=== PATIENT | male | born 2000 | race Caucasian/White ===

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

== ENCOUNTER 2021-03-24 13:43 | Emergency (ER) | payer OTHER ==
[~2021-03-24] VITALS: Ht 167.6 cm; Wt 68.0 kg
[2021-03-24] MEDS ORDERED: IBUPROFEN 600 MG TABLET. PO ONE (14:00)
[2021-03-24] MEDS ORDERED: IOHEXOL 300 MG/ML 75 ML VIAL. IV ONE (15:15)
[2021-03-24] MEDS ORDERED: CONTRAST GIVEN. MC PRN (15:30)
[2021-03-24 15:32] LABS: BASO % 1 % (0-3); EOS # 0.2 x10^3/uL (0.0-0.7); EOS % 3 % (0-3); HEMATOCRIT 45.5 % (39.0-53.0); HEMOGLOBIN 15.3 g/dL (13.0-17.5); LYMPH % 28 % (24-48); MEAN CORPUSCULAR HEMOGLOBIN 30 pg (25-35); MEAN CORPUSCULAR HGB CONC 34 g/dL (31-37); MEAN CORPUSCULAR VOLUME 89 fL (79-100); MONO # 0.5 x10^3/uL (0.0-1.1); MONO % 7 % (0-9); NEUT # 4.5 x10^3uL (1.8-7.7); NEUT % 62 % (31-73); PLATELET COUNT 259 x10^3/uL (140-400); RED CELL DISTRIBUTION WIDTH 13.5 % (11.5-14.5); WHITE BLOOD COUNT 7.2 x10^3/uL (4.0-11.0)
[2021-03-24 15:39] LABS: CREATININE 1.1 mg/dL (0.7-1.3); GFR 86.2
[2021-03-24 15:44] LABS: ALBUMIN 4.3 g/dL (3.4-5.0); ALBUMIN/GLOBULIN RATIO 1.3 (1.0-1.7); TOTAL BILIRUBIN 1.3 mg/dL (0.2-1.0); TOTAL PROTEIN 7.7 g/dL (6.4-8.2)
[2021-03-24 15:54] LABS: MONONUCLEOSIS PATIENT NEGATIVE (NEGATIVE)
--- NOTE | 2021-03-24 15:54 | PHYS DOC ---
Past History Past Medical History: Anxiety, Depression (EILEEN HENRY APRN) Past Surgical History: Appendectomy (EILEEN HENRY APRN) Smoking: Non-smoker Alcohol Use: None Drug Use: Marijuana (EILEEN HENRY APRN) General Adult EDM: Chief Complaint: SORE THROAT HPI: HPI: Patient is a 20-year-old male presents with sore throat. Patient states that he gets strep throat twice a year. Patient states that he has pain when turning his neck to the left and was swallowing. Patient is able to maintain his own secretions. Patient also reports a cough. Patient denies fever. Patient's been using Motrin and salt water gargles at home with no relief. Denies medical history (EILEEN HENRY APRN) Review of Systems: Review of Systems: Constitutional: Denies fever or chills Eyes: Denies change in visual acuity HENT: Reports sore throat. Pain is worse on the right. Respiratory: Reports cough or shortness of breath Cardiovascular: Denies chest pain or edema GI: Denies abdominal pain, nausea, vomiting, bloody stools or diarrhea : Denies dysuria Musculoskeletal: Denies back pain or joint pain Integument: Denies rash Neurologic: Denies headache, focal weakness or sensory changes Endocrine: Denies polyuria or polydipsia Lymphatic: Denies swollen glands Psychiatric: Denies depression or anxiety (EILEEN HENRY APRN) Current Medications: Current Meds: Current Medications Medications (Trade) Dose Ordered Sig/Sonya Start Time Stop Time Status Last Admin Dose Admin Ibuprofen (Motrin) 600 mg 1X ONCE 03/24/21 14:00 03/24/21 14:01 DC 03/24/21 14:27 600 MG Info (Do NOT chart on this entry -- for MONITORING) 1 each PRN DAILY PRN 03/24/21 15:30 03/26/21 15:29 Iohexol (Omnipaque 300 Mg/ml) 75 ml 1X ONCE 03/24/21 15:15 03/24/21 15:21 DC 03/24/21 15:23 75 ML (EILEEN HENRY APRN) Allergies: Allergies: Allergies Coded Allergies Type Severity Reaction Last Updated Verified amoxicillin Allergy Severe hives 03/24/21 Yes (EILEEN HENRY APRN) Physical Exam: PE: Constitutional: Well developed, well nourished, no acute distress, non-toxic appearance. [] HENT: Normocephalic, atraumatic, bilateral external ears normal, oropharynx jatin st, no oral exudates, uvula is deviated to the left, tonsils red and inflamed Eyes: PERRLA, EOMI, conjunctiva normal, no discharge. [] Neck: Normal range of motion, no tenderness, supple, no stridor. [] Cardiovascular:Heart rate regular rhythm, no murmur [] Lungs & Thorax: Bilateral breath sounds clear to auscultation [] Abdomen: Bowel sounds normal, soft, no tenderness, no masses, no pulsatile masses. [] Skin: Warm, dry, no erythema, no rash. [] Back: No tenderness, no CVA tenderness. [] Extremities: No tenderness, no cyanosis, no clubbing, ROM intact, no edema. [] Neurologic: Alert and oriented X 3, normal motor function, normal sensory function, no focal deficits noted. [] Psychologic: Affect normal, judgement normal, mood normal. [] (EILEEN HENRY APRN) Current Patient Data: Labs: Laboratory Tests Test 03/24/21 15:09 White Blood Count 7.2 x10^3/uL (4.0-11.0) Red Blood Count 5.10 x10^6/uL (4.30-5.70) Hemoglobin 15.3 g/dL (13.0-17.5) Hematocrit 45.5 % (39.0-53.0) Mean Corpuscular Volume 89 fL (79-100) Mean Corpuscular Hemoglobin 30 pg (25-35) Mean Corpuscular Hemoglobin Concent 34 g/dL (31-37) Red Cell Distribution Width 13.5 % (11.5-14.5) Platelet Count 259 x10^3/uL (140-400) Neutrophils (%) (Auto) 62 % (31-73) Lymphocytes (%) (Auto) 28 % (24-48) Monocytes (%) (Auto) 7 % (0-9) Eosinophils (%) (Auto) 3 % (0-3) Basophils (%) (Auto) 1 % (0-3) Neutrophils # (Auto) 4.5 x10^3uL (1.8-7.7) Lymphocytes # (Auto) 2.0 x10^3/uL (1.0-4.8) Monocytes # (Auto) 0.5 x10^3/uL (0.0-1.1) Eosinophils # (Auto) 0.2 x10^3/uL (0.0-0.7) Basophils # (Auto) 0.0 x10^3/uL (0.0-0.2) Sodium Level 140 mmol/L (136-145) Potassium Level 4.0 mmol/L (3.5-5.1) Chloride Level 102 mmol/L (98-107) Carbon Dioxide Level 30 mmol/L (21-32) Anion Gap 8 (6-14) Blood Urea Nitrogen 9 mg/dL (8-26) Creatinine 1.1 mg/dL (0.7-1.3) Estimated GFR (Cockcroft-Gault) 86.2 BUN/Creatinine Ratio 8 (6-20) Glucose Level 95 mg/dL (70-99) Calcium Level 9.0 mg/dL (8.5-10.1) Total Bilirubin Pending Aspartate Amino Transferase (AST) Pending Alanine Aminotransferase (ALT) Pending Alkaline Phosphatase Pending Total Protein Pending Albumin Pending Albumin/Globulin Ratio Pending Vital Signs: Vital Signs Date Time Temp Pulse Resp B/P (MAP) Pulse Ox O2 Delivery O2 Flow Rate FiO2 03/24/21 13:43 98.6 87 18 129/72 98 Room Air (EILEEN HENRY APRN) EKG: EKG: [] (EILEEN HENRY CLAIM ADMINISTRATOR) Radiology/Procedures: Radiology/Procedures: []CT neck with contrast dated 03/24/2021. No comparison available. Clinical indication: Sore throat. TECHNIQUE: Contiguous axial imaging the neck performed following the intravenous administration of 75 cc Isovue-370. One or more of the following individualized dose reduction techniques were utilized for this examination: 1. Automated exposure control 2. Adjustment of the mA and/or kV according to patient size 3. Use of iterative reconstruction technique FINDINGS: Limited imaged portions the brain parenchyma unremarkable. Paranasal sinuses and mastoid air cells are clear. There is some soft tissue thickening of the lingual and palatine tonsils and adenoids. No circumscribed fluid collection to suggest abscess. No soft tissue gas. Heterogeneous material in the vallecula, likely retained mucus. The epiglottis is normal in thickness. Vocal cords are symmetric. No apparent mucosal lesion. Parotid glands and submandibular glands are symmetric. Thyroid gland is unremarkable. There are mildly enlarged bilateral cervical chain lymph nodes me asuring up to 1.8 cm long axis. Limited images of the lung apices are clear. No acute bony abnormality. IMPRESSION: 1. Soft tissue thickening of the tonsils and adenoids consistent with history of pharyngitis. There is no evidence of abscess. 2. Mild cervical chain lymphadenopathy, likely reactive. Electronically signed by: Steve Bhatt MD (03/24/2021 3:59 PM) [facility] (EILEEN HENRY APRN) Heart Score: C/O Chest Pain: No Risk Factors: Risk Factors: DM, Current or recent (<one month) smoker, HTN, HLP, family history of CAD, obesity. Risk Scores: Score 0 - 3: 2.5% MACE over next 6 weeks - Discharge Home Score 4 - 6: 20.3% MACE over next 6 weeks - Admit for Clinical Observation Score 7 - 10: 72.7% MACE over next 6 weeks - Early Invasive Strategies (EILEEN HENRY APRN) Course & Med Decision Making: Course & Med Decision Making Pertinent Labs and Imaging studies reviewed. (See chart for details) [] 20-year-old male presents with sore throat. Patient has a history of getting strep a couple times a year. Patient's been using salt water gargles and Motrin at home without much relief. Patient is able to maintain his own s ecretions. Patient has been increase in pain with swallowing and turning his neck. Patient states that the pain is worse on the right. Upon physical exam uvula was deviated to the left. No tonsillar exudate. Tonsils are red and swollen. No cervical lymphadenopathy. Afebrile. 600 mg Motrin given. Strep test is negative. Otoe was negative. All labs unremarkable. CT neck ordered to rule out peritonsillar abscess. CT of neck shows soft tissue thickening of the tonsils and adenoids consistent with history of pharyngitis. There is no evidence of abscess. Discussed results with patient. Patient continue taking Motrin at home for discomfort. Continue salt water gargles. Patient to follow-up with PCP or return to the emergency room if symptoms worsen. (EILEEN HENRY APRN) Mo Disclaimer: Dragon Disclaimer: This electronic medical record was generated, in whole or in part, using a voice recognition dictation system. (EILEEN HENRY APRN) Attending Co-Sign The patient was seen and interviewed as well as examined at the bedside. The chart was reviewed. The case was discussed. Agree with the plan of care. (ALINE BOGGS DO) Departure Departure: Impression: Primary Impression: Acute viral pharyngitis Disposition: HOME / SELF CARE / HOMELESS Condition: STABLE Referrals: WINTER SALEEM (PCP) Patient Instructions: Viral Pharyngitis Additional Instructions: You are seen in the emergency room for a sore throat. Your strep test was negative which we will still send off for culture. I also tested for mono which was also negative. We did obtain a CT of your neck to make sure that you did not have an abscess. CT of your neck was negative for peritonsillar abscess. Continue using Motrin at home for discomfort. Warm, salt water gargles. Please return to the emergency room if you have worsening symptoms or concerns. Otherwise follow-up with your PCP for further management. EMERGENCY DEPARTMENT GENERAL DISCHARGE INSTRUCTIONS Thank you for coming to [facility] (ED) today and trusting us with you care. We trust that you had a positivie experience in our Emergency Department. If you wish to speak to the department management, you may call the director at [phone]. YOUR FOLLOW UP INSTRUCTIONS ARE FOLLOWS: 1. Do you have a private Doctor? If you do not have a private doctor, please ask for a resource list of physicians or clinics that may be able to assist you with follow up care. 2. The Emergency Physician has interpreted your x-rays. The X-Ray specialist will also review them. If there is a change in the findings, you will be notified in 48 hours when at all possible. 3. A lab test or culture has been done, your results will be reviewed and you will be notified if you need a change in treatment. ADDITIONAL INSTRUCTIONS AND INFORMATION: 1. Your care today has been supervised by a physician who is specially trained in emergency care. Many problems require more than one evaluation for a complete diagnosis and treatment. We recommend that you schedule your follow up appointment as recommended to ensure complete treatment of you illness or injury. If you are unable to obtain follow up care and continue to have a problem, or if your condition worsens, we recommend that you return to the ED. 2. We are not able to safely determine your condition over the phone nor are we able to give sound medical advice over the phone. For these safety reasons, if you call for medical advice we will ask you to come to the ED for further evaluation. 3. If you have any questions regarding these discharge instructions please call the ED at [phone]. SAFETY INFORMATION: In the interest of safety, wellness, and injury prevention; we encourage you to wear your sealbelt, if you smoke; quite smoking, and we encourage family to use a protective helmet for bicycling and other sporting events that present an increased risk for head injury. IF YOUR SYMPTOMS WORSEN OR NEW SYMPTOMS DEVELOP, OR YOU HAVE CONCERNS ABOUT YOUR CONDITION; OR IF YOUR CONDITION WORSENS WHILE YOU ARE WAITING FOR YOUR FOLLOW UP APPOINTMENT; EITHER CONTACT YOUR PRIMARY CARE DOCTOR, THE PHYSICIAN WHOSE NAME AND NUMBER YOU WERE GIVEN, OR RETURN TO THE ED IMMEDIATELY. EILEEN HENRY APRN Mar 24, 2021 15:54 ALINE BOGGS DO Mar 27, 2021 10:15
--- NOTE | 2021-03-24 16:01 | RAD ---
CT neck with contrast dated 03/24/2021. No comparison available. Clinical indication: Sore throat. TECHNIQUE: Contiguous axial imaging the neck performed following the intravenous administration of 75 cc Isovue- 370. One or more of the following individualized dose reduction techniques were utilized for this examinat ion: 1. Automated exposure control 2. Adjustment of the mA and/or kV according to patient size 3. Use of iterative reconstruction technique FINDINGS: Limited imaged portions the brain parenchyma unremarkable. Paranasal sinuses and mastoid air cells ar e clear. There is some soft tissue thickening of the lingual and palatine tonsils and adenoids. No circumscrib ed fluid collection to suggest abscess. No soft tissue gas. Heterogeneous material in the vallecula, likely retained mucus. The epiglottis is normal in thickness. Vocal cords are symmetric. No apparent mucosal lesion. Parotid glands and submandibular glands are symmetric. Thyroid gland is unremarkable. There are mildl y enlarged bilateral cervical chain lymph nodes measuring up to 1.8 cm long axis. Limited images of the lung apices are clear. No acute bony abnormality. IMPRESSION: 1. Soft tissue thickening of the tonsils and adenoids consistent with history of pharyngitis. There i s no evidence of abscess. 2. Mild cervical chain lymphadenopathy, likely reactive. Electronically signed by: Steve Bhatt MD (03/24/2021 3:59 PM) [facility]
[2021-03-24 16:30] VITALS: BP 120/69
== END 2021-03-24 16:38 | disposition home or self-care (01) ==
LOC: ER 13:43
DX: J02.8 Acute pharyngitis due to other specified organisms (principal); F41.9 Anxiety disorder, unspecified; F32.9 Major depressive disorder, single episode, unspecified; Z88.1 Allergy status to other antibiotic agents
CPT/HCPCS: 36415; 70491; 80053; 85025; 86308; 87070; 87880; 99285; Q9967; 87147

== ENCOUNTER 2021-04-10 06:40 | Emergency (ER) | payer OTHER ==
[~2021-04-10] VITALS: Ht 167.6 cm; Wt 66.0 kg
[2021-04-10] MEDS ORDERED: CLIN150C16 PO (07:29)
--- NOTE | 2021-04-10 07:29 | PHYS DOC ---
Past History Past Medical History: Anxiety, Depression Past Surgical History: Appendectomy Smoking: Non-smoker Alcohol Use: None Drug Use: Marijuana General Adult EDM: Chief Complaint: SORE THROAT HPI: HPI: Patient is a 20 male coming in for sore throat. Was seen 1.5 weeks ago was told he had viral pharyngitis. Using home remedies without improvement. Patient states he has been able to drink fluids but is having difficulty with salt intake. Denies any fever systemic complaints. Patient states he has a history of recurrent tonsillitis about 3 times per year. Has been vaccinated against Covid. Denies any drooling or difficulty swallowing secretions. Review of Systems: Review of Systems: All other systems within normal limits except for as noted in the HPI Allergies: Allergies: Allergies Coded Allergies Type Severity Reaction Last Updated Verified amoxicillin Allergy Severe hives 03/24/21 Yes Physical Exam: PE: Constitutional: Well developed, well nourished, no acute distress, non-toxic appearance. [] HENT: Normocephalic, atraumatic, bilateral external ears normal, nose normal. Exam posterior pharynx, enlarged tonsils, no uvular shift [] Eyes: PERRLA, conjunctiva normal, no discharge. [] Neck: No rigidity, supple, no stridor. [] Cardiovascular: Regular rate and rhythm, brisk cap refill [] Lungs & Thorax: Non labored symmetric respirations, no tachypnea or respiratory distress [] Abdomen: Soft, nondistended. Skin: Warm, dry, no erythema, no rash. [] Back: Unremarkable Extremities: No deformities, range of motion grossly intact, no lower extremity edema [] Neurologic: Alert and oriented X 3, no focal deficits noted. [] Psychologic: Affect normal, judgement normal, mood normal. [] Current Patient Data: Vital Signs: Vital Signs Date Time Temp Pulse Resp B/P (MAP) Pulse Ox O2 Delivery O2 Flow Rate FiO2 04/10/21 06:55 98.3 95 16 118/71 99 EKG: EKG: [] Radiology/Procedures: Radiology/Procedures: [] Heart Score: C/O Chest Pain: No Risk Factors: Risk Factors: DM, Current or recent (<one month) smoker, HTN, HLP, family history of CAD, obesity. Risk Scores: Score 0 - 3: 2.5% MACE over next 6 weeks - Discharge Home Score 4 - 6: 20.3% MACE over next 6 weeks - Admit for Clinical Observation Score 7 - 10: 72.7% MACE over next 6 weeks - Early Invasive Strategies Course & Med Decision Making: Course & Med Decision Making Pertinent Labs and Imaging studies reviewed. (See chart for details) [] [place] Disclaimer: Dragon Disclaimer: This electronic medical record was generated, in whole or in part, using a voice recognition dictation system. Departure Departure: Impression: Primary Impression: Tonsillitis Disposition: HOME / SELF CARE / HOMELESS Condition: STABLE Referrals: WINTER SALEEM (PCP) Patient Instructions: Tonsillitis Scripts Clindamycin Hcl (CLINDAMYCIN HCL) 150 Mg Capsule 3 CAP PO TID for antibiotic for 10 Days, #90 CAP Prov: TANJA MARINA MD 04/10/21 TANJA MARINA MD Apr 10, 2021 07:29
[2021-04-10] MEDS ORDERED: DEXAMETHASONE SOD PHOS 10 MG/ML VIAL. PO ONE (07:45)
[2021-04-10] MEDS ORDERED: KETOROLAC 60 MG/2 ML VIAL. IM ONE (07:45)
[2021-04-10 07:55] VITALS: BP 112/68
== END 2021-04-10 07:55 | disposition home or self-care (01) ==
LOC: ER 06:40
DX: J03.90 Acute tonsillitis, unspecified (principal); Z20.822 Contact with and (suspected) exposure to COVID-19; Z88.1 Allergy status to other antibiotic agents
CPT/HCPCS: 87070; 87880; 96372; 99283; C9803; J1100; J1885; U0003; 87147